=== PATIENT | male | born 1995 | race African-American/Black ===

== ENCOUNTER 2018-11-15 06:47 | Emergency (ER) | payer SELFPAY ==
[~2018-11-15] VITALS: Ht 177.8 cm; Wt 68.0 kg
[2018-11-15] MEDS ORDERED: ACETAMINOPHEN 325MG TABLET PO STA (07:41)
[2018-11-15] MEDS ORDERED: LIDOCAINE HCL/PF 1% 10 MG/ML 5ML VIAL IJ ONE (07:45)
[2018-11-15 07:53] LABS: BASOPHILS % 1.1 % (0.0-2.0); EOSINOPHILS % 1.3 % (0.0-5.0); HEMATOCRIT. 46.1 % (42.0-52.0); HEMOGLOBIN. 15.5 g/dL (14.0-18.0); MEAN CORPUSCULAR VOLUME 92.2 fL (80.0-94.0); MEAN PLATELET VOLUME 6.8 fl (7.4-10.4); MONOCYTES % 9.7 % (2.0-8.0); NEUTROPHILS % 64.9 % (40.0-76.0); PLATELET 278 x1000/uL (130-400); RED CELL DISTRIBUTION WIDTH 13.3 % (11.6-14.6)
[2018-11-15 07:58] LABS: CHLORIDE 105 mEq/L (98-107)
[2018-11-15] MEDS ORDERED: OLANZAPINE 10 MG/VIAL IM ONE (08:00)
[2018-11-15] MEDS ORDERED: LORAZEPAM 2MG/ML CPJ IM ONE (08:00)
[2018-11-15 08:02] LABS: ETHANOL BLOOD < 10 mg/dL
[2018-11-15 11:03] LABS: CLARITY URINE CLEAR (CLEAR); COLOR URINE YELLOW (YELLOW); KETONES URINE NEGATIVE (NEGATIVE); LEUKOCYTE ESTERASE URINE NEGATIVE (NEGATIVE); NITRITE URINE NEGATIVE (NEGATIVE); OCCULT BLOOD URINE NEGATIVE (NEGATIVE); PROTEIN URINE NEGATIVE (NEGATIVE); SPECIFIC GRAVITY URINE 1.011 (1.005-1.030); UROBILINOGEN URINE 0.2 E.U./dL (0.2-1.0)
[2018-11-15 11:13] LABS: *AMPHETAMINES SCREEN URINE NEGATIVE (NEGATIVE); *BARBITURATES SCREEN URINE NEGATIVE (NEGATIVE); *BENZODIAZEPINES SCREEN URINE NEGATIVE (NEGATIVE); *COCAINE SCREEN URINE NEGATIVE (NEGATIVE)
[2018-11-15 11:14] LABS: CANNABINOID URINE SCREEN NEGATIVE (NEGATIVE); METHADONE URINE SCREEN NEGATIVE (NEGATIVE); OPIATES URINE SCREEN NEGATIVE (NEGATIVE); PHENCYCLIDINE URINE SCREEN NEGATIVE (NEGATIVE)
[2018-11-15] MEDS ORDERED: TETANUS, DIPHTHERIA, PERTUSSIS VAC/PF 0.5ML (>7YR OLD) IM ONE (11:45)
[2018-11-15] MEDS ORDERED: BACITRACIN ZINC OINT UDPKT TOP ONE (12:30)
[2018-11-18 09:04] LABS: CHLORIDE 109 mEq/L (98-107)
[2018-11-18 14:43] VITALS: BP 121/62
== END 2018-11-18 15:00 | disposition short-term general hospital (02) ==
LOC: ER 06:47
DX: R45.851 Suicidal ideations (principal); M79.5 Residual foreign body in soft tissue; F17.200 Nicotine dependence, unspecified, uncomplicated
CPT/HCPCS: 36415; 80048; 80053; 80305; 80307; 80320; 80329; 81003; 85025; 90471; 90715; 93005; 96372; 99285; J2060; J3490; Z7610; G0480